=== PATIENT | male | born 1975 | race African-American/Black ===

== ENCOUNTER 2016-08-27 09:54 | Emergency (ER) | payer OTHER ==
[2016-08-27 10:44] VITALS: BP 148/87; PULSE 82; RESP 16; TEMP 98.6; O2SAT 95
--- NOTE | 2016-08-27 10:59 | UCPHY ---
H & P Time Seen by Provider: 08/27/16 09:59 Patient Type: Established HPI/ROS: CC: head injury, syncope since. HPI: 39-year-old male improved good health. No history of family history of syncope. No prolonged QT known. Yesterday he was at a local [employer] store. As he was leaving he stepped onto an area that was well marked suspect sign which that the floor was wet. He slipped , falling to the floor and on the way down clipped the side of shelf display striking his right periorbital area. He got up immediately. He was not knocked out. Denies any neck or head pain, simply the periorbital area. I also did him in the mormon. Really was not too bad. He was asked by the staff there if he was okay. He said he was. Last night he went home, as the injury was toward the end of the day. He subsequently did some chores around the corner into the kitchen, at home, so as to help with the kitchen. At that time that he was coming around a corner we felt like he was about to collapse, and did so but did not re-injure himself. Today he drove up to work all the way from [employer], some 45 minutes commute. He felt unwell during that time but not bad enough to turn around. While at work he was doing some moderate activity requiring open up the hot tub and thereafter as he was walking along the corner between the wall and the fencing he felt and collapsed again. There is no tonic-clonic activity either time. He did not lose continence. She is emphatic that the initial event as of yesterday afternoon in the late afternoon was in fact a slip and fall rather than a similar incident as he has had subsequently. He has had no fluid loss. There has been no blood per rectum. He has had no hemoptysis hematemesis. Has been no calf pain or shortness of breath or difficulty breathing. Who is factors for PE DVT: None ROS: Constitutional - feeling well before the fall Head see above Eyes - no diplopia, blurred vision. ENT - no earache, no fluid from ear. No fluid from nose. No facial injury Neck: no pain or decreased ROM Cardiac: No palpitations or chest pain or shortness of breath Thorax did not injury to chest or ribs or spine, no shortness of breath Abdominal - denies any abdomen, or back injury. No nausea. Musculoskeletal - no joint or muscle pain. No leg swelling or calf swelling, or calf pain Integument - no lacerations, except the abrasion around the right eye Neurological - no headache, numbness, tingling, or paresthesias. No focal motor weakness. No amnesia or LOC. No fluid from ear or nose 10 point ROS otherwise negative Smoking Status: Current every day smoker Physical Exam: Constitutional: Well-nourished, well-developed, no acute distress. Neck: Nontender without step off, with full active range of motion without pain. Cervical spine clinically cleared by nexus criteria Eyes: Pupils equal and reactive. Small abrasion to the right periorbital area. No entrapment. No orbital tenderness. ENT: Ears are without hemotympanum. Mouth exam, atraumatic. Chest: Ribs are nontender. No signs of splinting respirations. Cardiovascular: Regular rate rhythm without murmur. Back: Nontender thoracic and lumbar sacral spine Abdomen: Nontender. No organomegaly. No abrasions Musculoskeletal: Moves all extremities without difficulty. No joint swelling. No ecchymosis. No deformities. Extremities: Homans sign is negative. No edema. No cords. Skin: No observed abrasions or lacerations. Skin is warm and dry. Normal motor and sensation Neuro: Alert and oriented with a GCS of 15. No acute distress. No headache. Psych: Normal mood and affect. Constitutional: Initial Vital Signs Temperature (C) 37 C 08/27/16 10:07 Heart Rate 82 08/27/16 10:07 Respiratory Rate 16 08/27/16 10:07 Blood Pressure 148/87 H 08/27/16 10:07 O2 Sat (%) 95 08/27/16 10:07 O2 Delivery Mode Room Air Allergies/Adverse Reactions: promethazine HCl [From Phenergan] Allergy (Severe, Verified 08/27/16 10:07) Anaphylaxis Fish Containing Products [fish] Allergy (Unknown, Verified 08/27/16 10:07) Anaphylaxis wool Allergy (Unknown, Verified 08/27/16 10:07) Itching Home Medications: Medication Instructions Recorded NK [No Known Home Meds] 08/27/16 Medical Decision Making - Diagnostics Imaging: EKG: Interpreted by me contemporaneously. Normal sinus rhythm. No signs of ischemia. Early repolarization. Probable left ventricular hypertrophy. QTC normal. See official reading. Differential Diagnosis: Differential Includes but is not limited to: Concussion, head injury, subdural hematoma, epidural hematoma, intraparenchymal hemorrhage, subarachnoid hemorrhage ACS, myocardial infarction, pneumothorax, pulmonary embolus, anxiety, malignant arrhythmia, dehydration, faint. This is obviously an energetic man. His sense of moderate activity while clearing of the hot tub been on hot tub is probably not quite my sense of moderate activity. I strongly believe he simply done way too much for having been hit in the head and he needs rest at home observation. I have explained to him at length the need for the above, exertional rest, brain rest, no driving , as well as follow-up. Furthermore, I gave him a copy of the EKG as to have his PCP evaluate the LVH issues. Departure - Departure Disposition: Home, Routine, Self-Care Clinical Impression: Head injury due to trauma, Concussion Condition: Fair Instructions: Concussion (ED), Head Injury (ED) Additional Instructions: No operating machinery No driving Do not go back to work until released by her family doctor As her EKG shows some questionable left ventricular hypertrophy have a family doctor review this when you see them tomorrow or on Wednesday. Your allowed to take Tylenol or ibuprofen. Have your spouse awakened every 3-4 hours and check in on you for the next 24. no strenuous work. No reading manual. No computer work. No texting. You are allowed to watch low lara movies, no sports. Such as chick flicks and [employer] Referrals: NONE *PRIMARY CARE P,. [Primary Care Provider] - As per Instructions Stand Alone Forms: Work Excuse - PQRS PQRS Measurement: NA
--- NOTE | 2016-08-27 11:09 | CPEKG ---
Heart Rate: 62 RR Interval: 968 P-R Interval: 136 QRSD Interval: 92 QT Interval: 412 QTC Interval: 419 P [place]: 68 QRS [place]: 55 T Wave [place]: 49 EKG Severity - ABNORMAL ECG - EKG Impression: SINUS RHYTHM EKG Impression: PROBABLE LEFT ATRIAL ABNORMALITY EKG Impression: LEFT VENTRICULAR HYPERTROPHY EKG Impression: ST ELEV, PROBABLE NORMAL EARLY REPOL PATTERN Electronically Signed By: Brendan Kerr 29-Aug-2016 12:13:00
== END 2016-08-27 11:25 | disposition home or self-care (01) ==
LOC: CED 09:54
DX: S06.0X0A Concussion without loss of consciousness, initial encounter (principal); S00.211A Abrasion of right eyelid and periocular area, initial encounter; W01.190A Fall on same level from slipping, tripping and stumbling with subsequent striking against furniture, initial encounter; Y92.59 Other trade areas as the place of occurrence of the external cause; F17.200 Nicotine dependence, unspecified, uncomplicated; R40.2412 Glasgow coma scale score 13-15, at arrival to emergency department
CPT/HCPCS: 93010-PO; 99214-PO; G0463-PO

== ENCOUNTER 2016-09-25 10:26 | Observation (INO) | payer OTHER ==
--- NOTE | 2016-09-25 10:42 | CPEKG ---
Heart Rate: 58 RR Interval: 1034 P-R Interval: 144 QRSD Interval: 84 QT Interval: 424 QTC Interval: 417 P [place]: 72 QRS [place]: 50 T Wave [place]: 41 EKG Severity - BORDERLINE ECG - EKG Impression: SINUS RHYTHM EKG Impression: PROBABLE LEFT ATRIAL ABNORMALITY EKG Impression: ST ELEV, PROBABLE NORMAL EARLY REPOL PATTERN Electronically Signed By: Thomas Garcia 26-Sep-2016 11:43:33
[2016-09-25] MEDS ORDERED: ASPIRIN 81 MG CHEWABLE TAB PO ONE (11:02)
[2016-09-25] MEDS ORDERED: KETOROLAC 30 MG/1 ML SDV IVP ONE (11:02)
--- NOTE | 2016-09-25 11:06 | UCPHY ---
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 Patient states that 3 weeks ago he had a syncopal episode. A week after that he developed episodes of chest pain. He was evaluated on multiple occasions. He was found to have an elevated D- dimer. 2 weeks ago he had a negative CT angiogram. He had an echocardiogram [address] Wilkins states that the echocardiogram is normal. Patient developed left-sided chest pain last night. It is described as an "ache." It is waxing waning. It is not positional. He has no shortness of breath. No diaphoresis. No nausea or vomiting. No leg pain or swelling. Patient has no cardiac family history. Patient smokes tobacco and THC. REVIEW OF SYSTEMS: My complete review of systems is negative except as mentioned in the HPI. Past Medical/Surgical History: Includes orthopedic surgery Family history: The patient has a sister that from a cerebral aneurysm. No history of coronary disease. Social history: The patient smokes THC and cigarettes. No other drug use. Smoking Status: Current every day smoker Physical Exam: Vitals noted GENERAL: Well-appearing, in no acute distress, alert. Fit. HEENT: Eyes normal to inspection, normal pharynx, no signs of dehydration. NECK: No thyromegaly, no lymphadenopathy, supple. RESPIRATORY: Clear to auscultation bilaterally, no rales, rhonchi or wheezing. CVS: Regular rate and rhythm, no rubs, murmurs, or gallops. ABDOMEN: Soft, nontender, nondistended, no organomegaly. BACK: Normal to inspection, no CVA tenderness. SKIN: Normal color, no rash, warm, dry. No pallor. EXTREMITIES: No pedal edema, no calf tenderness, no Homans sign or cords, no joint swelling. NEURO/PSYCH: Alert and oriented x3, normal mood and affect, normal motor sensory exam. Constitutional: Initial Vital Signs Temperature (C) 36.9 C 09/25/16 10:41 Heart Rate 63 09/25/16 10:41 Respiratory Rate 18 09/25/16 10:41 Blood Pressure 109/69 09/25/16 10:41 O2 Sat (%) 96 04/21/17 10:41 O2 Delivery Mode Room Air Allergies/Adverse Reactions: promethazine HCl [From Phenergan] Allergy (Severe, Verified 09/25/16 10:40) Anaphylaxis Fish Containing Products [fish] Allergy (Unknown, Verified 09/25/16 10:40) Anaphylaxis wool Allergy (Unknown, Verified 09/25/16 10:40) Itching Home Medications: Medication Instructions Recorded Marijuana 09/25/16 Medical Decision Making - Diagnostics EKG Interpretation: EKG shows normal sinus rhythm, normal rate, normal axis, normal intervals. ST elevation which appears to be early repolarization. This is unchanged from his previous EKG. EKG is normal as interpreted by me. ED Course/Re-evaluation: In urgent care discussed possible etiologies with the patient. I answered all his questions. Laboratory studies and EKG were ordered. Do not feel patient needs a chest x-ray with a negative CT angiogram. Patient was given Toradol 30 mg IV and aspirin 324 mg orally. Patient was also given a GI cocktail. Patient's troponin is normal. His other laboratory studies were unremarkable. No change in symptoms after Toradol. I discussed the results with Dr. Wilkins from Cardiology. He recommended admission to [facility]. I discussed this with the patient. I had multiple discussions with the patient regarding transfer. Patient consented to transfer and further workup. Differential Diagnosis: My differential includes but is not limited to ACS, acute MS, dissection, aneurysm, pulmonary embolus, pleurisy, bronchitis, pneumonia, reflux, GERD - Data Points Laboratory Results: Laboratory Results 09/25/16 10:55 09/25/16 10:55 09/25/16 09/25/16 10:55 10:55 WBC 4.54 10^3/uL 10^3/uL (3.80-9.50) RBC 4.35 10^6/uL L 10^6/uL (4.40-6.38) Hgb 14.1 g/dL g/dL (13.7-17.5) Hct 39.9 % L % (40.0-51.0) MCV 91.7 fL fL (81.5-99.8) MCH 32.4 pg pg (27.9-34.1) MCHC 35.3 g/dL g/dL (32.4-36.7) RDW 12.8 % % (11.5-15.2) Plt Count 249 10^3/uL 10^3/uL (150-400) MPV 10.8 fL fL (8.7-11.7) Neut % (Auto) 59.7 % % (39.3-74.2) Lymph % (Auto) 28.6 % % (15.0-45.0) [place] % (Auto) 5.3 % % (4.5-13.0) Eos % (Auto) 5.5 % % (0.6-7.6) Baso % (Auto) 0.7 % % (0.3-1.7) Nucleat RBC Rel Count 0.0 % % (0.0-0.2) Absolute Neuts (auto) 2.71 10^3/uL 10^3/uL (1.70-6.50) Absolute Lymphs (auto) 1.30 10^3/uL 10^3/uL (1.00-3.00) Absolute Monos (auto) 0.24 10^3/uL L 10^3/uL (0.30-0.80) Absolute Eos (auto) 0.25 10^3/uL 10^3/uL (0.03-0.40) Absolute Basos (auto) 0.03 10^3/uL 10^3/uL (0.02-0.10) Absolute Nucleated RBC 0.00 10^3/uL 10^3/uL (0-0.01) Immature Gran % 0.2 % % (0.0-1.1) Immature Gran # 0.01 10^3/uL 10^3/uL (0.00-0.10) Sodium 141 mEq/L mEq/L (134-144) Potassium 4.1 mEq/L mEq/L (3.5-5.2) Chloride 108 mEq/L mEq/L (97-110) Carbon Dioxide 22 mEq/l mEq/l (22-31) Anion Gap 11 mEq/L mEq/L (8-16) BUN 13 mg/dL mg/dL (7-23) Creatinine 1.0 mg/dL mg/dL (0.7-1.3) Estimated GFR > 60 Glucose 92 mg/dL mg/dL (70-100) Calcium 8.9 mg/dL mg/dL (8.5-10.4) Total Bilirubin 0.4 mg/dL mg/dL (0.1-1.4) Conjugated Bilirubin 0.2 mg/dL mg/dL (0.0-0.5) Unconjugated Bilirubin 0.2 mg/dL mg/dL (0.0-1.1) AST 23 IU/L IU/L (17-59) ALT 27 IU/L IU/L (21-72) Alkaline Phosphatase 64 IU/L IU/L (38-126) Troponin I < 0.012 ng/mL ng/mL (0-0.034) Total Protein 6.3 g/dL g/dL (6.3-8.2) Albumin 3.4 g/dL L g/dL (3.5-5.0) Lipase 183.0 IU/L IU/L (23-300) Medications Given: Discontinued Medications Al Hydroxide/Mg Hydroxide (Maalox Susp) 30 ml PO ONCE ONE Stop: 09/25/16 11:09 Last Admin: 09/25/16 11:30 Dose: 30 ml Aspirin (Aspirin) 324 mg PO EDNOW ONE Stop: 09/25/16 11:03 Last Admin: 09/25/16 11:25 Dose: 324 mg Ketorolac Tromethamine (Toradol) 30 mg IVP EDNOW ONE Stop: 09/25/16 11:03 Last Admin: 09/25/16 11:30 Dose: 30 mg Lidocaine (Lidocaine 2% Viscous) 15 ml PO ONCE ONE Stop: 09/25/16 11:09 Last Admin: 09/25/16 11:30 Dose: 15 ml Departure - Departure Disposition: [facility] Inpatient Acute Clinical Impression: Chest pain Qualifiers: Chest pain type: precordial pain Qualified Code(s): R07.2 - Precordial pain Condition: Good Instructions: Chest Pain (ED) Referrals: Merlene Greenberg PA [Primary Care Provider] - 1-2 days without fail - PQRS PQRS Measurement: 134: Depression screening and followup, PRIME MD-PHQ2 (12 years and older) Over the last 2 weeks, how often have you been bothered by any of the following problems? 1. Feeling down, depressed, or hopeless? 2. Little interest or pleasure in doing things? Patient answered no to both 1 and 2 130: Documentation of medications. Reviewed all patient medications, doses, route and frequency. 226: Do you smoke? Yes, counseled to stop. 47: 65 and older: Advanced care planning. Patient refused. 51: 18 years old and older with diagnosis of COPD, spirometry performance. Patient has no history of COPD
[2016-09-25] MEDS ORDERED: LIDOCAINE 2% VISCOUS 15 ML UDCUP PO ONE (11:08)
[2016-09-25] MEDS ORDERED: MAG HYDROX/AL HYDROX/SIMETH 30 ML UDCUP PO ONE (11:08)
[2016-09-25 11:11] LABS: % IMMATURE GRANULYOCYTES 0.2 % (0.0-1.1); ABSOLUTE IMMATURE GRANULOCYTES 0.01 10^3/uL (0.00-0.10); ADD DIFF? NO; ADD MORPH? NO; ADD SCAN? NO; ATYPICAL LYMPHOCYTE FLAG 10 (0-99); FRAGMENT RBC FLAG 0 (0-99); HEMATOCRIT 39.9 % (40.0-51.0); HEMOGLOBIN 14.1 g/dL (13.7-17.5); LEFT SHIFT FLG 0 (0-99); LIPEMIA HEMOLYSIS FLAG 90 (0-99); MEAN CELL HEMOGLOBIN 32.4 pg (27.9-34.1); MEAN CELL HEMOGLOBIN CONCENTR. 35.3 g/dL (32.4-36.7); MEAN CELL VOLUME 91.7 fL (81.5-99.8); MEAN PLATELET VOLUME 10.8 fL (8.7-11.7); PLATELET CLUMPS FLAG 0 (0-99); PLATELET COUNT 249 10^3/uL (150-400); RED BLOOD CELL COUNT 4.35 10^6/uL (4.40-6.38); RED CELL DISTRIBUTION WIDTH 12.8 % (11.5-15.2)
[2016-09-25 11:24] LABS: ALANINE AMINOTRANSFERASE 27 IU/L (21-72); ALBUMIN 3.4 g/dL (3.5-5.0); ALKALINE PHOSPHATASE 64 IU/L (38-126); ANION GAP 11 mEq/L (8-16); ASPARTATE AMINOTRANSFERASE 23 IU/L (17-59); BILIRUBIN,TOTAL 0.4 mg/dL (0.1-1.4); BILIRUBIN-CONJUGATED 0.2 mg/dL (0.0-0.5); BILIRUBIN-UNCONJUGATED 0.2 mg/dL (0.0-1.1); CALCIUM 8.9 mg/dL (8.5-10.4); CARBON DIOXIDE 22 mEq/l (22-31); CHLORIDE 108 mEq/L (97-110); GLOMERULAR FILTRATION RATE > 60; GLUCOSE 92 mg/dL (70-100); POTASSIUM 4.1 mEq/L (3.5-5.2); SODIUM 141 mEq/L (134-144); TOTAL PROTEIN 6.3 g/dL (6.3-8.2)
[2016-09-25 11:30] LABS: TROPONIN I < 0.012 ng/mL (0-0.034)
[2016-09-25] MEDS ORDERED: ONDANSETRON DISINTEGRATING 4 MG TAB PO PRN (15:10)
[2016-09-25] MEDS ORDERED: ACETAMINOPHEN 325 MG TAB PO PRN (15:10)
[2016-09-25] MEDS ORDERED: ONDANSETRON 4 MG/2 ML VIAL IVP PRN (15:10)
--- NOTE | 2016-09-25 15:44 | CPEKG ---
Heart Rate: 56 RR Interval: 1071 P-R Interval: 140 QRSD Interval: 104 QT Interval: 440 QTC Interval: 425 P Drake: 75 QRS Drake: 74 T Wave Drake: 55 EKG Severity - NORMAL ECG - EKG Impression: SINUS RHYTHM EKG Impression: ST ELEV, PROBABLE NORMAL EARLY REPOL PATTERN Electronically Signed By: Cy Lester 26-Sep-2016 10:41:26
[2016-09-25] MEDS ORDERED: NICOTINE POLACRILEX 2 MG GUM B PRN (15:50)
[2016-09-25] MEDS ORDERED: NICOTINE 21 MG/24 HR PATCH TD SCH (16:00)
--- NOTE | 2016-09-25 16:02 | PDEACUHP ---
History and Physical - Chief Complaint chest discomfort - History of Present Illness Patient is a 41 yo previously healthy man who presents with c/o intermittent chest pain x 3 weeks. He notes that his symptoms were preceded by a slip and fall about one month ago during which he hit his head and either had a complete or near LOC event to follow. He bruised the side of his head and felt disoriented. The following day, he returned to work, and despite that he he had been feeling well other than a mild ALBERTS, he suffered a syncopal event. He thinks he was unconscious for about 1 minute. He left work and was seen at [facility], and had a relatively normal work up other than ? of LVH on ecg. He had labs checked through his PCP and she was concerned that he had a positive d dimer and called him in the evening encouraging him to be seen at [facility] for further evaluation. They performed a CT angio of the chest as well as another ecg, and without evidence of PE or ACS he was discharged to follow up with cardiology. He had an echo performed at [facility] 2 weeks ago, that showed normal ef, normal diastolic function and mild TR. He says his PCP explained to him that his "heart was bleeding" and that this was similar to, but not, a murmur. He has been worrying about that since then. He continues to have slight substernal chest pain, that does not seem to be associated with exertion and has been present about 2-3 weeks. He has been under a lot of stress and has brianda working long hours, including one 26 hour shift the week when his pain began. He notes that the pain is somewhat positional, and it gets better if he stretches out and puts his arms over his head. He has not had fever or chills, cough, swelling or pain in his legs. He is a smoker, and uses MJ daily. Last night he had a bout of fast heart rate that was associated with more severe chest pain, up to a 6-8/10. He went to see cardiology today for follow up of his worsening sxs, who recommended he come here for a stress test. He currently has no significant issues, and states there is only a mild ache. History Information - Allergies/Home Medication List Allergies/Adverse Reactions: promethazine HCl [From Phenergan] Allergy (Severe, Verified 09/25/16 10:40) Anaphylaxis Fish Containing Products [fish] Allergy (Unknown, Verified 09/25/16 10:40) Anaphylaxis wool Allergy (Unknown, Verified 09/25/16 10:40) Itching Home Medications: Marijuana 09/25/16 [Last Taken Unknown] I have personally reviewed and updated: family history, medical history, social history, surgical history - Past Medical History no pertinent PMH - Surgical History Additional surgical history: hand surgery. ankle surgery - Family History Additional family history: 1 sister of an aneurysm/another sister committed surgery. mother of lung cancer. father was murdered. 3 half brothers who are in good health as far as he knows - Social History Smoking Status: Current every day smoker Review of Systems ROS: 10pt was reviewed & negative except for what was stated in HPI & below Physical Exam Temp Pulse Resp BP Pulse Ox 36.8 C 55 L 19 135/85 H 95 09/25/16 15:16 09/25/16 15:16 09/25/16 15:16 09/25/16 15:16 09/25/16 15:16 Constitutional: no apparent distress, appears nourished, not in pain Eyes: PERRL Ears, Nose, Mouth, Throat: moist mucous membranes, hearing normal Cardiovascular: regular rate and rhythym, no murmur, rub, or gallop, No edema Respiratory: no respiratory distress, no rales or rhonchi, clear to auscultation Gastrointestinal: normoactive bowel sounds, soft, non-tender abdomen Genitourinary: no bladder tenderness Skin: warm, normal color Musculoskeletal: full muscle strength, no muscle tenderness Neurologic: AAOx3 Psychiatric: interacting appropriately, not anxious, not encephalopathic Lab Data & Imaging Review 09/25/16 10:55 09/25/16 10:55 WBC 4.54 10^3/uL (3.80-9.50) 09/25/16 10:55 RBC 4.35 10^6/uL (4.40-6.38) L 09/25/16 10:55 Hgb 14.1 g/dL (13.7-17.5) 09/25/16 10:55 Hct 39.9 % (40.0-51.0) L 09/25/16 10:55 MCV 91.7 fL (81.5-99.8) 09/25/16 10:55 MCH 32.4 pg (27.9-34.1) 09/25/16 10:55 MCHC 35.3 g/dL (32.4-36.7) 09/25/16 10:55 RDW 12.8 % (11.5-15.2) 09/25/16 10:55 Plt Count 249 10^3/uL (150-400) 09/25/16 10:55 MPV 10.8 fL (8.7-11.7) 09/25/16 10:55 Neut % (Auto) 59.7 % (39.3-74.2) 09/25/16 10:55 Lymph % (Auto) 28.6 % (15.0-45.0) 09/25/16 10:55 [place] % (Auto) 5.3 % (4.5-13.0) 09/25/16 10:55 Eos % (Auto) 5.5 % (0.6-7.6) 09/25/16 10:55 Baso % (Auto) 0.7 % (0.3-1.7) 09/25/16 10:55 Nucleat RBC Rel Count 0.0 % (0.0-0.2) 09/25/16 10:55 Absolute Neuts (auto) 2.71 10^3/uL (1.70-6.50) 09/25/16 10:55 Absolute Lymphs (auto) 1.30 10^3/uL (1.00-3.00) 09/25/16 10:55 Absolute Monos (auto) 0.24 10^3/uL (0.30-0.80) L 09/25/16 10:55 Absolute Eos (auto) 0.25 10^3/uL (0.03-0.40) 09/25/16 10:55 Absolute Basos (auto) 0.03 10^3/uL (0.02-0.10) 09/25/16 10:55 Absolute Nucleated RBC 0.00 10^3/uL (0-0.01) 09/25/16 10:55 Immature Gran % 0.2 % (0.0-1.1) 09/25/16 10:55 Immature Gran # 0.01 10^3/uL (0.00-0.10) 09/25/16 10:55 Sodium 141 mEq/L (134-144) 09/25/16 10:55 Potassium 4.1 mEq/L (3.5-5.2) 09/25/16 10:55 Chloride 108 mEq/L (97-110) 09/25/16 10:55 Carbon Dioxide 22 mEq/l (22-31) 09/25/16 10:55 Anion Gap 11 mEq/L (8-16) 09/25/16 10:55 BUN 13 mg/dL (7-23) 09/25/16 10:55 Creatinine 1.0 mg/dL (0.7-1.3) 09/25/16 10:55 Estimated GFR > 60 09/25/16 10:55 Glucose 92 mg/dL (70-100) 09/25/16 10:55 Calcium 8.9 mg/dL (8.5-10.4) 09/25/16 10:55 Total Bilirubin 0.4 mg/dL (0.1-1.4) 09/25/16 10:55 Conjugated Bilirubin 0.2 mg/dL (0.0-0.5) 09/25/16 10:55 Unconjugated Bilirubin 0.2 mg/dL (0.0-1.1) 09/25/16 10:55 AST 23 IU/L (17-59) 09/25/16 10:55 ALT 27 IU/L (21-72) 09/25/16 10:55 Alkaline Phosphatase 64 IU/L (38-126) 09/25/16 10:55 Troponin I < 0.012 ng/mL (0-0.034) 09/25/16 10:55 Total Protein 6.3 g/dL (6.3-8.2) 09/25/16 10:55 Albumin 3.4 g/dL (3.5-5.0) L 09/25/16 10:55 Lipase 183.0 IU/L (23-300) 09/25/16 10:55 Interpretation: CTA from [facility]: report as no PE, irregular 8mm pulmonary nodule in RLL, prominent right hilar LN that is of uncertain significance Visualized and Interpreted EKG results: Yes EKG Interpretation: Positive for: ST elevation EKG additional interpertation: no real change from August, probably early repol abnormality Assessment & Plan Assessment: Chest pain (Acute) 41 yo M with no significant PMH presenting with chest pain # chest pain: present now for several weeks, has had prior w/u including CTA for marginally elevated d dimer, as well echo that was unremarkable. ECG with ST elevation that is largely unchanged. Pain sounds as if it could be pericarditis and will continue toradol for now. Cardiology is involved, sent patient over for stress test which will be performed in the am. # pulmonary nodule: noted on CT at [facility] last month, will need f/u CT in 3 months given that patient is a smoker # mild TR: with preserved EF and no other significant valvular abnormalities other than trace MR. F/u Echo in 3-5 years. # tobacco use: recommend cessation # dispo: observation status Patient new to my care. Care plan reviewed with doctor. Old records reviewed including ER note and imaging from [facility].
[2016-09-25] MEDS ORDERED: KETOROLAC 30 MG/1 ML SDV IVP PRN (16:25)
[2016-09-25] MEDS ORDERED: LORazepam 1 MG TAB PO PRN (16:29)
--- NOTE | 2016-09-26 08:33 | HOSPPROG ---
Hospitalist Progress Note Assessment/Plan: #Atypical chest pain: had negative TTE, CTA, and troponins. Nuclear stress today. Patient left AWOL before imaging was resulted. # Subjective: no chest pain this morning. Objective: Vital Signs Temp Pulse Resp BP Pulse Ox 36.5 C 56 L 16 125/81 H 96 09/26/16 04:00 09/26/16 04:00 09/26/16 04:00 09/26/16 04:00 09/26/16 04:00 - Physical Exam Constitutional: no apparent distress Eyes: PERRL Ears, Nose, Mouth, Throat: moist mucous membranes Cardiovascular: regular rate and rhythym Respiratory: no respiratory distress Gastrointestinal: normoactive bowel sounds, soft, non-tender abdomen Genitourinary: no bladder fullness Skin: warm Musculoskeletal: full muscle strength Neurologic: AAOx3 ICD10 Worksheet Patient Problems: Problems Problem Status Onset Chest pain Acute
[2016-09-26] MEDS ORDERED: ASPIRIN 325 MG TAB PO SCH (09:00)
[2016-09-26 09:02] VITALS: RESP 18
[2016-09-26] MEDS ORDERED: REGADENOSON 0.4 MG/5 ML SYR IVP ONE (10:48)
--- NOTE | 2016-09-26 11:27 | PDCARST ---
CAR Stress Test Results Type of Stress Test: Nuclear TM stress test Indication: chest pain Description of Procedure: After informed consent was obtained, pt was established to ECG, blood pressure, and heart rate monitoring. At b/l, pt is in SR with likely J point elevations, bp 120/74, HR 76 and normal oximetry. Pt exercised for a total of 13 minutes on the Jaiden protocol. There were no ischemic changes. There was a PVC couplet at peak exercise but no other arrhythmias. Peak BP was 200/80. Pt achieved HR of 175, 98% of MPHR based on age. In recovery, there were no arrhythmias. Normal HR/BP recovery. No cp throughout testing. Impression: DTS: +13 very low risk Conclusion: Await nuclear images.
[2016-09-26 11:49] VITALS: BP 116/77; PULSE 76; TEMP 98; O2SAT 97
--- NOTE | 2016-09-26 14:23 | GDS ---
[f rep st] DISCHARGE SUMMARY HISTORY OF PRESENT ILLNESS: The patient is a 41-year-old male with no significant past medical hist ory, presenting with intermittent chest pain for 3 weeks. Symptoms were preceded by a slip and fall about a month ago, when he hit his head, and had a bruise on the side of his head and felt disorien cande. The following day, he returned to work and suffered a syncopal episode. He was unconscious fo r about a minute. He left work and [place] [facility] workup, other than LVH on an E KG. He saw his PCP and had an elevated dimer and was sent to [facility] for further evaluation. CT angio there was negative for a pulmonary embolism, and an EKG was negative for acute ischemia. He was dis charged, to follow up with Cardiology, and had an echocardiogram performed at [facility] 2 weeks ago, that showed normal EF, diastolic function and mild TR. He continues to have slight substernal chest pain that is not associated with exertion. He has been under lot of stress, and has been work ing up to 26 hours in one shift. It gets better when he stretches out and puts his arms over his he ad. He denies any fevers, chills or sweats. No swelling. He is a smoker, uses marijuana daily. T he day prior to admission, he noted his heart racing, and had severe chest pain up to 6-8. He presente d to Cardiology and was recommended to be admitted for stress test. HOSPITAL COURSE BY PROBLEM: 1. Atypical chest pain: Patient has had an extensive evaluation including a negative CTA, echocard iogram and serial troponins. EKG is negative for ischemia. He was admitted for a nuclear stress te . Patient underwent this, however, patient left AWOL prior to results being read by radiology. I did not have time to advise him on the risks and benefits of leaving prior to knowing the results. 2. Pulmonary nodule, noted on CT at [facility] last month. Will need a followup CT in 3 months, give n he is a smoker. 3. Mild tricuspid regurgitation: Repeat echocardiogram per Cardiology. 4. Tobacco abuse. Recommend cessation. DISPOSITION: Patient left AWOL prior to nuclear scan results being read. /[id number]/MODL
== END 2016-09-26 13:21 | disposition left against medical advice (07) ==
LOC: CED 10:26 → CEDHOLD 13:23 → F1N 15:08
PROVIDERS: ADMIT Internal Medicine; ATTEND Internal Medicine
DX: R07.9 Chest pain, unspecified (principal); R91.1 Solitary pulmonary nodule; Z72.0 Tobacco use; Z80.1 Family history of malignant neoplasm of trachea, bronchus and lung
CPT/HCPCS: 78451; 93005; 93017; 96374; 99213; A9500; G0378; 80048-PO; 80076-PO; 83690-PO; 84484-PO; 85025-PO; 93010-PO; 99215-PO; G0463-PO; J1885; J2785